=== PATIENT | female | born 1995 | race African-American/Black ===

== ENCOUNTER 2016-08-24 18:11 | Emergency (ER) | payer OTHER ==
[~2016-08-24] VITALS: Ht 152.4 cm; Wt 59.9 kg
[2016-08-24] MEDS ORDERED: MICO2CRE23 PV (20:35)
[2016-08-24 20:38] VITALS: BP 105/59
== END 2016-08-24 20:44 | disposition home or self-care (01) ==
LOC: M ED 18:11
DX: N76.0 Acute vaginitis (principal)

== ENCOUNTER 2016-09-22 14:14 | Emergency (ER) | payer OTHER ==
[~2016-09-22] VITALS: Ht 152.4 cm; Wt 60.8 kg
[~2016-09-22 14:14] MED LIST: MICO2CRE23 PV
[2016-09-22 17:05] LABS: CONTROL LINE UCG INT CTR LINE PRESENT
[2016-09-22] MEDS ORDERED: DIFL150T PO (17:29)
[2016-09-22 17:34] VITALS: BP 115/59
== END 2016-09-22 17:47 | disposition home or self-care (01) ==
LOC: M ED 14:14
DX: L29.3 Anogenital pruritus, unspecified (principal)

== ENCOUNTER 2016-11-01 21:04 | Emergency (ER) | payer OTHER ==
[~2016-11-01] VITALS: Ht 152.4 cm; Wt 60.9 kg
[~2016-11-01 21:04] MED LIST changes: +DIFL150T PO
[2016-11-01 21:05] VITALS: BP 105/65
[2016-11-01] MEDS ORDERED: AUGMENTIN 875 MG TAB PO ONE (21:45)
[2016-11-01] MEDS ORDERED: predniSONE 20 MG TAB PO ONE (21:45)
[2016-11-01] MEDS ORDERED: PRED20TA PO (21:48)
[2016-11-01] MEDS ORDERED: AUGM875T28 PO (21:48)
[2016-11-01] MEDS ORDERED: GUAIDM5UD PO (21:48)
== END 2016-11-01 21:57 | disposition home or self-care (01) ==
LOC: M ED 21:04
DX: J01.90 Acute sinusitis, unspecified (principal)

== ENCOUNTER 2017-02-17 14:59 | Emergency (ER) | payer OTHER ==
[2017-02-17 16:27] LABS: BASO % 0.3 % (0.0-1.0); EOS # 0.1 10^3/uL (0.0-0.50); EOS % 1.9 % (0.0-3.0); HEMOGLOBIN 13.5 g/dl (12.0-16.0); IMMATURE GRANULOCYTE % 0.1 % (0-0); LYMPH # 2.1 10^3/uL (1.5-6.5); LYMPH % 28.7 % (24.0-44.0); MEAN CORPUSCULAR HEMOGLOBIN 26.3 pg (27.0-33.0); MEAN CORPUSCULAR HGB CONC 31.4 g/dl (32.0-36.5); MEAN CORPUSCULAR VOLUME 83.8 fl (80.0-96.0); MONO # 0.5 10^3/uL (0.0-0.8); MONO % 7.3 % (0.0-5.0); NEUTROPHILS # 4.6 10^3/uL (1.8-7.7); NEUTROPHILS % 61.7 % (36.0-66.0); PLATELET COUNT, AUTOMATED 321 10^3/uL (150-450); RED BLOOD COUNT 5.13 10^6/uL (4.00-5.40); RED CELL DISTRIBUTION WIDTH 12.5 % (11.5-14.5); WHITE BLOOD COUNT 7.4 10^3/uL (4.0-10.0)
[2017-02-17 17:03] LABS: D-DIMER QUANT 459.9 ng/ml (<500)
[2017-02-17 17:18] LABS: CONTROL LINE HCG INT CTR LINE PRESENT; HCG, SERUM QUALITATIVE NEGATIVE (NEGATIVE)
[2017-02-17 17:21] LABS: ANION GAP 6 MEQ/L (8-16); BLOOD UREA NITROGEN 7 MG/DL (7-18); C REACTIVE PROTEIN QUANTITATIV < 0.30 MG/DL (0.00-0.30); CALCIUM LEVEL 9.6 MG/DL (8.5-10.1); CARBON DIOXIDE LEVEL 28 MEQ/L (21-32); CHLORIDE LEVEL 106 MEQ/L (98-107); CPK CREATINE PHOSPHOKINASE 132 U/L (26-192); GLOMERULAR FILTRATION RATE > 60.0 (>60); GLUCOSE, FASTING 87 MG/DL (70-105); POTASSIUM SERUM 3.8 MEQ/L (3.5-5.1); SODIUM LEVEL 140 MEQ/L (136-145); TROPONIN I < 0.02 NG/ML (< 0.10)
[2017-02-17 17:26] LABS: MB/CK RELATIVE INDEX 0.75 (< OR =4)
[2017-02-17] MEDS: KETOROLAC 30 MG/ML VIAL (J1885) IV (18:07)
== END 2017-02-17 18:33 | disposition home or self-care (01) ==
LOC: M ED 14:59
DX: M94.0 Chondrocostal junction syndrome [Tietze] (principal); R94.31 Abnormal electrocardiogram [ECG] [EKG]
CPT/HCPCS: J1885